=== PATIENT | female | born 1990 | race Caucasian/White ===

== ENCOUNTER 2018-08-09 10:23 | Emergency (ER) | payer MEDICAID ==
[~2018-08-09] VITALS: Ht 160 cm; Wt 70.0 kg
[2018-08-09] MEDS ORDERED: ondansetron/PF 4mg/2ml inj IV ONE (11:00)
[2018-08-09 11:01] LABS: BASOPHILS % (AUTO) 0.5 % (0-1); EOSINOPHILS # (AUTO) 0.1 X10'3 (0-0.9); EOSINOPHILS % (AUTO) 1.3 % (0-6); HEMATOCRIT 37.9 % (35.0-45.0); HEMOGLOBIN 12.8 g/dl (12.0-16.0); LYMPHOCYTES # (AUTO) 1.4 X10'3 (1.1-4.8); LYMPHOCYTES % (AUTO) 13.8 % (21-51); MEAN CORPUSCULAR HEMOGLOBIN 31.7 PG (27.0-31.0); MEAN CORPUSCULAR HGB CONC 33.7 g/dL (33.0-36.5); MEAN CORPUSCULAR VOLUME 94.1 FL (78-98); MEAN PLATELET VOLUME 9.5 FL (7.4-10.4); MONOCYTES # (AUTO) 0.4 X10'3 (0-0.9); MONOCYTES % (AUTO) 4.1 % (2-12); NEUTROPHILS # (AUTO) 8.2 X10'3 (1.8-7.7); NEUTROPHILS % (AUTO) 80.3 % (42-75); PLATELET COUNT 234 X10'3 (140-440); RED BLOOD COUNT 4.03 X10'6 (4.20-5.60); RED CELL DISTRIBUTION WIDTH 13.2 % (11.5-14.5); WHITE BLOOD COUNT 10.2 X10'3 (4.5-11.0)
[2018-08-09 11:16] LABS: ALANINE AMINOTRANSFERASE 26 U/L (12-78); ALBUMIN 3.7 G/DL (3.4-5.0); ALBUMIN/GLOBULIN RATIO 0.9 (1.1-1.5); ALKALINE PHOSPHATASE 65 IU/L (46-116); ANION GAP 11 (8-16); ASPARTATE AMINO TRANSFERASE 19 U/L (10-37); BILIRUBIN,TOTAL 0.4 MG/DL (0.1-1.0); BLOOD UREA NITROGEN 7 MG/DL (7-18); BUN/CREATININE RATIO 8.2 (6.6-38.0); CALCIUM 8.7 MG/DL (8.5-10.1); CHLORIDE 104 MMOL/L (99-107); CREATININE 0.85 MG/DL (0.40-0.90); GLUCOSE 143 MG/DL (70-104); POTASSIUM 3.6 MMOL/L (3.5-5.1); SODIUM 136 MMOL/L (135-145); TOTAL CARBON DIOXIDE 21.4 MMOL/L (24-32); TOTAL PROTEIN 7.8 G/DL (6.4-8.2); eGFR 79 ML/MIN
[2018-08-09] MEDS ORDERED: fentaNYL/PF 50MCG/1 ML 2ML syringe IV ONE (11:50)
[2018-08-09] MEDS ORDERED: ketorolac trometh. 30mg/ml inj. IV ONE (11:50)
[2018-08-09 12:32] LABS: LIPASE 98 U/L (73-393)
[2018-08-09] MEDS ORDERED: diazepam 5mg tablet PO ONE (13:15)
[2018-08-09] MEDS ORDERED: normal saline 1000ML IV soln IVB ONE (13:15)
[2018-08-09] MEDS ORDERED: pantoprazole 40 MG vial IV ONE (13:15)
[2018-08-09] MEDS ORDERED: morphine 4 MG/ML inj SYRINge IV ONE (13:15)
[2018-08-09] MEDS ORDERED: proCHLORperazine 10 MG/2 ml inj IV ONE (13:15)
[2018-08-09 13:33] LABS: HCG SERUM QL NEGATIVE
[2018-08-09] MEDS ORDERED: ESOMEPRAZOLE 40 MG VIAL IV STA (13:33)
[2018-08-09 13:43] LABS: CLARITY,URINE CLEAR (Clear); COLOR,URINE STRAW (Yellow); GLUCOSE, URINE NEGATIVE (Neg); KETONES,URINE >=80 mg/dl (Neg); LEUKOCYTE ESTERASE ,URINE NEGATIVE (Neg); NITRITES, URINE NEGATIVE (Neg); OCCULT BLOOD,URINE NEGATIVE (Neg); PH,URINE 6.5 (4.8-8.0); PROTEIN,URINE NEGATIVE (Neg); UROBILINOGEN,URINE 0.2 E.U/dL (0.2-1.0)
[2018-08-09 13:46] LABS: UA COLLECTION TYPE OTHER
--- NOTE | 2018-08-09 14:18 | NUR ---
Pt resting comfortably. Reports pain now 2/10, denies nausea.
[2018-08-09] MEDS ORDERED: PROC25SU31 RC (15:39)
[2018-08-09] MEDS ORDERED: PANT-47 PO (15:39)
[2018-08-09 15:57] VITALS: BP 111/55
== END 2018-08-09 15:58 | disposition home or self-care (01) ==
LOC: ER 10:24
DX: E11.43 Type 2 diabetes mellitus with diabetic autonomic (poly)neuropathy (principal); K31.84 Gastroparesis; R11.2 Nausea with vomiting, unspecified; R10.13 Epigastric pain; R10.12 Left upper quadrant pain; E11.319 Type 2 diabetes mellitus with unspecified diabetic retinopathy without macular edema; F12.90 Cannabis use, unspecified, uncomplicated; Z87.11 Personal history of peptic ulcer disease; Z79.899 Other long term (current) drug therapy
CPT/HCPCS: 36415; 71045; 80053; 81003; 82009; 82948; 83690; 84703; 85025; 85610; 96361; 96374; 96375; 99284; J0780; J1885; J2270; J2405; J3010; J7030